=== PATIENT | female | born 1980 | race Two or more races ===

== ENCOUNTER 2017-02-12 09:16 | Inpatient (IN) | payer OTHER ==
[2017-02-12 10:40] VITALS: BMI 29.1
--- NOTE | 2017-02-12 12:08 | HP ---
CIWA Score - CIWA Score Nausea/Vomitin-No Nausea/No Vomiting Muscle Tremors: 4-Moderate,w/Arms Extend Anxiety: 3 Agitation: 4-Moderately Restless Paroxysmal Sweats: 3 Orientation: 0-Oriented Tacttile Disturbances: 0-None Auditory Disturbances: 0-None Visual Disturbances: 0-None Headache: 0-None Present CIWA-Ar Total Score: 14 Admission ROS BHS - HPI Chief Complaint: I am referred to come for detox. I drink everyday. Allergies/Adverse Reactions: Allergies Allergy/AdvReac Type Severity Reaction Status Date / Time No Known Allergies Allergy Verified 02/12/17 10:40 History of Present Illness: pt is a 36yr old female with a history of alcohol dependence seeking detox. Exam Limitations: No Limitations - Ebola screening Have you traveled outside of the country in the last 21 days: No Have you had contact with anyone from an Ebola affected area: No Have you been sick,other than usual withdrawal symptoms: No - Review of Systems Constitutional: Chills, Diaphoresis, Loss of Appetite EENT: reports: No Symptoms Reported Respiratory: reports: No Symptoms reported Cardiac: reports: Syncope GI: reports: Poor Appetite, Poor Fluid Intake : reports: No Symptoms Reported Musculoskeletal: reports: Back Pain, Joint Pain Integumentary: reports: Flushing, Sweating Neuro: reports: Ataxia (pt states she was at her uncle home and was bitten on arms, back, hand by bed bugs.) Endocrine: reports: No Symptoms Reported Hematology: reports: Anemia (thalasemia) Psychiatric: reports: Judgement Intact, Mood/Affect Appropiate, Orientated x3, Agitated, Anxious Other Systems: Reviewed and Negative Patient History - Patient Medical History Hx Anemia: Yes (thalasemia minor) Hx Asthma: Yes (Pt is on MDI) Hx Chronic Obstructive Pulmonary Disease (COPD): No Hx Cardiac Disorders: No Hx Hypertension: Yes (recently dx and did not start meds.) Hx Seizures: No Hx Diabetes: No Hx Gastrointestinal Disorders: No Hx Genitourinary Disorders: No Hx Sexually Transmitted Disorders: No Hx Renal Disease (ESRD): No Hx Thyroid Disease: No Hx Human Immunodeficiency Virus (HIV): No Hx Hepatitis C: No Hx Depression: Yes Hx Suicide Attempt: Yes (Tried to overdose on seroquel in 09/25, denies any S/H ideation today) Hx Bipolar Disorder: No Hx Schizophrenia: No - Patient Surgical History Past Surgical History: No - PPD History Previous Implant?: Yes Documented Results: Negative w/o proof Implanted On Prior R Admission?: No PPD to be Administered?: Yes - Reproductive History Patient is a Female of Child Bearing Age (11 -55 yrs old): Yes Last Menstrual Period: 02/05/17 Patient : No - Smoking Cessation Smoking history: Current every day smoker Have you smoked in the past 12 months: Yes Aproximately how many cigarettes per day: 3 Hx Chewing Tobacco Use: No Initiated information on smoking cessation: Yes 'Breaking Loose' booklet given: 02/12/17 - Substance & Tx. History Hx Alcohol Use: Yes Hx Substance Use: Yes Substance Use Type: Alcohol, Marijuana Hx Substance Use Treatment: No - Substances Abused Alcohol Route: Oral Frequency: Daily Amount used: 12pk beer or 1 pint of vodka/gin/cognac Age of first use: 15 Date of Last Use: 02/11/17 Marijuana/Hashish Route: Smoking Frequency: 1-2 times per week Amount used: 1 blunt Age of first use: 13 Date of Last Use: 02/11/17 Family Disease History - Family Disease History Family History: Denies Family Disease History: Heart Disease: Father, Mother Admission Physical Exam S - Vital Signs Vital Signs: Vital Signs - 24 hr 02/12/17 10:35 Temperature 95.7 F L Pulse Rate 79 Respiratory 18 Rate Blood Pressure 170/111 - Physical General Appearance: Yes: Appropriately Dressed, Moderate Distress, Tremorous, Irritable, Sweating, Anxious HEENTM: Yes: Normal Voice Respiratory: Yes: Lungs Clear, Normal Breath Sounds, No Respiratory Distress Neck: Yes: No masses,lesions,Nodules Breast: Yes: Within Normal Limits Cardiology: Yes: Regular Rhythm, Regular Rate, S1, S2 Abdominal: Yes: Normal Bowel Sounds, Non Tender Genitourinary: Yes: Within Normal Limits Back: Yes: Normal Inspection Musculoskeletal: Yes: Back pain, Muscle Pain Extremities: Yes: Normal Inspection, Non-Tender, Tremors Neurological: Yes: Fully Oriented, Alert, Normal Response Integumentary: Yes: Normal Color, Diaphoresis, Rash Lymphatic: Yes: Within Normal Limits - Diagnostic (1) Alcohol dependence with uncomplicated withdrawal Current Visit: Yes Status: Chronic (2) Cannabis dependence Current Visit: Yes Status: Chronic (3) Nicotine dependence Current Visit: Yes Status: Chronic Qualifiers: Nicotine product type: cigarettes Substance use status: uncomplicated Qualified Code(s): F17.210 - Nicotine dependence, cigarettes, uncomplicated (4) Skin rash Current Visit: Yes Status: Acute Comment: back/hands/arms Cleared for Admission [facility] - Detox or Rehab [facility] Level of Care: Medically Managed Detox Regimen/Protocol: Librium S Breath Alcohol Content Breath Alcohol Content: 0 Urine Pregancy Test - Result Urine Test Results: Negative- NO Line Present Urine Drug Screen - Results Drug Screen Negative: No Urine Drug Screen Results: THC-Marijuana
[2017-02-12] MEDS ORDERED: LOPERAMIDE HCL 2 MG CAPSULE PO PRN (12:33)
[2017-02-12] MEDS ORDERED: MAG HYDROX/AL HYDROX/SIMETH 30 ML UNIT-DOSE CUP PO PRN (12:33)
[2017-02-12] MEDS ORDERED: hydrOXYzine PAMOATE 50 MG CAPSULE (FP) PO PRN (12:33)
[2017-02-12] MEDS ORDERED: P-EPHED 60MG/TRIPROLIDI 2.5MG TABLET PO PRN (12:33)
[2017-02-12] MEDS ORDERED: MAGNESIUM HYDROX 2400MG/30ML ORAL SUSPENSION 30 ML CUP PO PRN (12:33)
[2017-02-12] MEDS ORDERED: diphenhydrAMINE HCL 50 MG CAPSULE PO PRN ×2 (12:33→12:43)
[2017-02-12] MEDS ORDERED: guaiFENesin/D-METHORPHAN HB 10 ML UNIT-DOSE CUPS PO PRN (12:33)
[2017-02-12] MEDS ORDERED: chlordiazePOXIDE HCL 25 MG CAPSULE PO PRN (12:33)
[2017-02-12] MEDS ORDERED: MENTHOL/PHENOL 1 EACH UD MM PRN (12:33)
[2017-02-12] MEDS ORDERED: MAGNESIUM CITRATE 300 ML BOTTLE PO PRN (12:33)
[2017-02-12] MEDS ORDERED: ACETAMINOPHEN 325 MG TABLET (FP) PO PRN (12:33)
[2017-02-12] MEDS ORDERED: IBUPROFEN 400 MG TABLET (FP) PO PRN (12:33)
[2017-02-12] MEDS ORDERED: CYCLOBENZAPRINE HCL 10 MG TABLET (FP) PO PRN (12:43)
[2017-02-12] MEDS ORDERED: chlordiazePOXIDE HCL 25 MG CAPSULE PO ONE (12:43)
[2017-02-12] MEDS: FLUOCINONIDE 0.05% TOP OINT (60 GM TUBE) TP SCH ×3 (14:22→22:20)
[2017-02-12] MEDS ORDERED: cloNIDine HCL 0.1 MG TABLET PO ONE (15:00)
[2017-02-12] MEDS ORDERED: COLLOIDAL OATMEAL 1 BAR EACH TP PRN (15:32)
--- NOTE | 2017-02-12 16:15 | CONSULT ---
[facility] Psychiatric Consult - Data Date of interview: 02/12/17 Admission source: [facility] Identifying data: First admission to [facility] for this 36 y/o AA female seeking detox treatment for alcohol and marijuana dependence.Patient is ,a mother of four,domicled,unemployed and supported on SSI benefits. Substance Abuse History: - Smoking Cessation. Smoking history: Current every day smoker. Have you smoked in the past 12 months: Yes. Aproximately how many cigarettes per day: 3. Hx Chewing Tobacco Use: No. Initiated information on smoking cessation: Yes. 'Breaking Loose' booklet given: 02/12/17. - Substance & Tx. History. Hx Alcohol Use: Yes. Hx Substance Use: Yes. Substance Use Type : Alcohol, Marijuana. Hx Substance Use Treatment: No. - Substances Abused. * * Alcohol. Route: Oral. Frequency: Daily. Amount used: 12pk beer or 1 pint of vodka/gin/cognac. Age of first use: 15. Date of Last Use: 02/11/17. Marijuana/Hashish. Route: Smoking. Frequency: 1-2 times per week. Amount used : 1 blunt. Age of first use: 13. Date of Last Use: 02/11/17. Confirmed by patient. Medical History: Bronchial asthma,hypertension and thalassemia minor.Patient indicates that she is legally blind. Psychiatric History: No reported history of psychiatric hospitalizations.Diagnosed with MDD.Prescribed lexapro 20 mg/day + seroquel 50 mg/am + 100 mg/hs.Ms Mancilla states that she gets OPD care services at the [facility] in the [place].Patient reports a history of multiple suicide attempts by various means (overdosing,cutting,jumping into oncoming traffic). Physical/Sexual Abuse/Trauma History: Patient denies. Additional Comment: Urine Drug Screen Results: THC-Marijuana.Noted. Mental Status Exam - Mental Status Exam Alert and Oriented to: Time, Place, Person Cognitive Function: Good Patient Appearance: Well Groomed Mood: Anxious, Apprehensive, Hopeful Affect: Mood Congruent Patient Behavior: Fatigued, Appropriate, Cooperative Speech Pattern: Clear, Appropriate Voice Loudness: Normal Thought Process: Goal Oriented Thought Disorder: Not Present Hallucinations: Denies Suicidal Ideation: Denies Homicidal Ideation: Denies Insight/Judgement: Poor Sleep: Poorly, Difficulty falling asleep Appetite: Good Muscle strength/Tone: Normal Gait/Station: Normal Psychiatric Findings - Problem List ([place] 1, 2,3) (1) Alcohol dependence with uncomplicated withdrawal Current Visit: Yes Status: Acute (2) Cannabis dependence Current Visit: Yes Status: Acute (3) Nicotine dependence Current Visit: Yes Status: Acute Qualifiers: Nicotine product type: cigarettes Substance use status: uncomplicated Qualified Code(s): F17.210 - Nicotine dependence, cigarettes, uncomplicated (4) Substance induced mood disorder Current Visit: Yes Status: Acute (5) MDD (major depressive disorder) Current Visit: Yes Status: Chronic Comment: Self-report. (6) Insomnia Current Visit: Yes Status: Acute - Initial Treatment Plan Initial Treatment Plan: Psychoeducation.Detoxification.Medications : lexapro 20 mg po daily + seroquel 50 mg po am + 100 mg po hs.Side effects/benefits explained to patient.She is eager to resume these medications.Observation.
[2017-02-12] MEDS: chlordiazePOXIDE HCL 25 MG CAPSULE PO SCH ×2 (17:55→22:19)
[2017-02-12 20:32] LABS: URINE APPEARANCE CLEAR; URINE BILIRUBIN NEGATIVE (NEGATIVE); URINE BLOOD NEGATIVE (NEGATIVE); URINE COLOR YELLOW; URINE GLUCOSE (UA) NEGATIVE (NEGATIVE); URINE KETONE 1+ (NEGATIVE); URINE LEUK ESTERASE NEGATIVE (NEGATIVE); URINE NITRITE NEGATIVE (NEGATIVE); URINE UROBILINOGEN NEGATIVE E.U./dl (0.2-1.0)
[2017-02-12 20:56] LABS: URINE PROTEIN 1+ (NEGATIVE)
[2017-02-12 20:59] LABS: URINE MUCUS RARE; URINE RBC 2 /hpf (0-3); URINE WBC 5 /hpf (3-5)
[2017-02-12] MEDS ORDERED: QUEtiapine FUMARATE 100 MG TABLET (FP) PO SCH (22:00)
[2017-02-12] MEDS ORDERED: THIAMINE HCL 100 MG TABLET (FP) PO SCH (22:00)
[2017-02-13] MEDS: chlordiazePOXIDE HCL 25 MG CAPSULE PO SCH ×2 (05:53→11:08)
--- NOTE | 2017-02-13 08:55 | PN ---
S CIWA - CIWA Score Nausea/Vomitin-No Nausea/No Vomiting Muscle Tremors: 4-Moderate,w/Arms Extend Anxiety: 3 Agitation: 4-Moderately Restless Paroxysmal Sweats: 3 Orientation: 0-Oriented Tacttile Disturbances: 0-None Auditory Disturbances: 0-None Visual Disturbances: 0-None Headache: 1-Very Mild CIWA-Ar Total Score: 15 BHS Progress Note (SOAP) Subjective: agitation anxiety sweats irritable I need a rn iv therapy to talk too. Objective: 02/13/17 08:54 Vital Signs Temperature 98.0 F 02/13/17 06:29 Pulse Rate 69 02/13/17 06:29 Respiratory Rate 20 02/13/17 06:29 Blood Pressure 117/64 02/13/17 06:29 O2 Sat by Pulse Oximetry (%) Laboratory Tests 02/12/17 15:00 Urine Color Yellow Urine Appearance Clear Urine pH 5.0 Ur Specific [place] 1.029 Urine Protein 1+ H Urine Glucose (UA) Negative Urine Ketones 1+ H Urine Blood Negative Urine Nitrite Negative Urine Bilirubin Negative Urine Urobilinogen Negative Ur Leukocyte Esterase Negative Urine RBC 2 Urine WBC 5 Ur Epithelial Cells Moderate Urine Mucus Rare labs pending awake/alert ambulating no acute distress Assessment: 02/13/17 08:54 withdrawal sx Plan: continue detox increase fluids diet changed to low salt low sugar diet dietary consult ordered labs pending
[2017-02-13 09:53] LABS: MCH 27.5 pg (25.7-33.7); MCHC 31.6 g/dl (32.0-36.0); MEAN PLT VOLUME 9.2 fl (7.5-11.1); PLATELET COUNT 269 K/MM3 (134-434); RDW 13.7 % (11.6-15.6); WHITE BLOOD COUNT 5.3 K/mm3 (4.0-10.0)
[2017-02-13] MEDS ORDERED: ESCITALOPRAM OXALATE 20 MG TABLET (FP) PO SCH (10:00)
[2017-02-13] MEDS ORDERED: PRENATAL VITAMINS W/ FOLIC ACID TABLET (FP) PO SCH (10:00)
[2017-02-13] MEDS ORDERED: cloNIDine HCL 0.1 MG TABLET PO SCH (10:00)
[2017-02-13] MEDS ORDERED: QUEtiapine FUMARATE 25 MG TABLET (FP) PO SCH (10:00)
[2017-02-13 10:36] LABS: ALBUMIN 3.4 g/dl (3.4-5.0); ALK PHOS 51 U/L (45-117); ANION GAP 10 (8-16); BILIRUBIN,TOTAL 0.6 mg/dL (0.2-1.0); CO2 25 mmol/L (21-32); CREATININE 0.9 mg/dL (0.55-1.02); GLUCOSE,RANDOM 113 mg/dL (74-106); SGOT/AST 14 U/L (15-37); SGPT/ALT 27 U/L (12-78); TOT PROT 6.5 g/dl (6.4-8.2)
[2017-02-13 10:37] VITALS: BP 150/90; PULSE 86; TEMP 97.2
[2017-02-13 10:44] LABS: HIV 1 & 2 AB NEGATIVE; HIV 1 AGp24 NEGATIVE
[2017-02-13] MEDS: FLUOCINONIDE 0.05% TOP OINT (60 GM TUBE) TP SCH ×2 (11:08→15:51)
--- NOTE | 2017-02-13 13:09 | PN ---
Psychiatric Progress Note Vital Signs: Vital Signs Period Temp Pulse Resp BP Sys/Curiel Pulse Ox Last 24 Hr 97.1 F-98.0 F 68-87 16-20 117-160/64-107 Date of Session: 02/13/17 Chief Complaint:: " I am upset.I want to speak with my outpatient therapist." HPI: Day 3 of detoxification treatment for alcohol and marijuana dependence.Hospital course was unremarkable until the patient started acting out this morning.Reason (s) : unclear.Ms Mancilla became argumentative with staff and she reportedly made threats to harm self and others. ROS: Hypertension is being addressed.Patient is ambulatory.Cognitively intact.No somatic complaint offered. Current Medications: Active Medications Generic Name Dose Route Start Last Admin Trade Name Freq PRN Reason Stop Dose Admin Acetaminophen 650 mg 02/12/17 12:33 Tylenol - PO Q4H PRN FEVER OR PAIN Al Hydroxide/Mg Hydroxide 30 ml 02/12/17 12:33 Mylanta Oral Suspension - PO Q6H PRN DYSPEPSIA Chlordiazepoxide HCl 10 mg 02/15/17 17:00 Librium - PO 02/16/17 11:01 [id number] PARTHA Chlordiazepoxide HCl 25 mg 02/12/17 12:33 02/12/17 19:59 Librium - PO 02/15/17 12:32 25 mg Q4H PRN Administration WITHDRAWAL(CONT SUBST) Chlordiazepoxide HCl 25 mg 02/13/17 17:00 Librium - PO 02/14/17 11:01 [id number] PARTHA Chlordiazepoxide HCl 15 mg 02/14/17 17:00 Librium - PO 02/15/17 11:01 [id number] PARTHA Clonidine 0.1 mg 02/13/17 10:00 02/13/17 11:07 Catapres - PO 0.1 mg BID PARTHA Administration Colloidal Oatmeal 1 applic 02/12/17 15:32 Aveeno Soap - TP DAILY PRN HYGEINE Cyclobenzaprine HCl 10 mg 02/12/17 12:43 02/12/17 22:19 Flexeril - PO 10 mg BID PRN Administration PAIN Diphenhydramine HCl 25 mg 02/12/17 12:43 Benadryl - PO DAILY PRN FOR ITCHING Escitalopram Oxalate 20 mg 02/13/17 10:00 02/13/17 11:07 Lexapro - PO 20 mg DAILY PARTHA Administration Eucalyptus/Menthol/Phenol/Sorbitol 1 each 02/12/17 12:33 Cepastat Lozenge - MM Q4H PRN SORE THROAT Fluocinonide 1 applic 02/12/17 14:00 02/13/17 11:08 Lidex 0.05% Ointment - TP 1 applic QID PARTHA Administration Guaifenesin 10 ml 02/12/17 12:33 Robitussin Dm - PO Q6H PRN COUGH Ibuprofen 400 mg 02/12/17 12:33 Motrin - PO Q6H PRN SEVERE PAIN Loperamide HCl 4 mg 02/12/17 12:33 Imodium - PO Q6H PRN DIARRHEA Magnesium Citrate 300 ml 02/12/17 12:33 Citroma - PO Q48H PRN CONSTIPATION Magnesium Hydroxide 30 ml 02/12/17 12:33 Milk Of Magnesia - PO DAILY PRN CONSTIPATION Multivit/Folic Acid/Iron 1 tab 02/13/17 10:00 02/13/17 11:07 Vitamins (Sjr) - PO 1 tab DAILY PARTHA Administration Pseudoephedrine/Triprolidine 1 combo 02/12/17 12:33 Actifed - PO TID PRN NASAL CONGESTION Quetiapine Fumarate 100 mg 02/12/17 22:00 02/12/17 22:19 Seroquel - PO 100 mg HS PARTHA Administration Quetiapine Fumarate 50 mg 02/13/17 10:00 02/13/17 11:08 Seroquel - PO 50 mg DAILY PARTHA Administration Thiamine HCl 100 mg 02/12/17 22:00 02/12/17 22:19 Vitamin B1 - PO 100 mg HS PARTHA Administration Medication(s) Change(s): Will increase seroquel to 200 mg po hs.Discussed with the patient.She agrees with this plan.Made aware of risk for oversedation/falls, metabolic syndrome.Continue lexapro 20 mg po daily. Current Side Effect: No Lab tests ordered: No Lab tests reviewed: Yes Provider note:: Called to re-evaluate this patient for alleged complaints of suicidal/homicidal ideation.Progress notes reviewed.Case presented by RIDDHI Villarreal.Met with the patient.She is found to be angry,tearful and upset for being " treated like dirt "," talked to like a nobody ".Ms Mancilla states that the situation started yesterday after her request for some cosmetic favors were promised at first by some staff and then denied by others.Patient,apparently, had asked staff for assistance for shortening her braided hair.Tension arose as soon as her request was denied.Then,she got upset over the combined issues of medications and rapport with staff.Ms Mancilla reports feeling offended by " the manners of some people ".She states that the emotional injury brings " rage and the desire to engage in a fight with that staff ".Patient insists that she never felt like hurting herself or other persons.She argues that her anger was triggered by her perception that her needs/complaints are not validated.In an effort to get relief,she asked to reach her OPD therapist by telephone (with the expectation that conversing with an already trusted figure will calmed her down).No evidence of psychosis.Patient is not manic or delusional.She has consistently denied experiencing suicidal or homicidal ideation,intent or plan.She is willing to pursue detox care as initially scheduled.Mental status is stable.Constant observation was initiated earlier as a cautionary measure until further psychiatric evaluation.Patient is currently calm,well controlled and receptive to support,teachings and crisii intervention.No indication for special observation.See MSE report.Discussed with Multidisciplinary team. Total face to face time:: 40 Mental Status Exam - Mental Status Exam Alert and Oriented to: Time, Place, Person Cognitive Function: Good Patient Appearance: Well Groomed (wearing hospital gowns) Mood: Angry, Anxious, Irritable Affect: Labile (tearful during interview) Patient Behavior: Talkative, Appropriate, Cooperative Speech Pattern: Clear (coherent,spontaneous and logical) Voice Loudness: Normal Thought Process: Goal Oriented Thought Disorder: Not Present Hallucinations: Denies Suicidal Ideation: Denies Homicidal Ideation: Denies Insight/Judgement: Fair Sleep: Fair Appetite: Good Muscle strength/Tone: Normal Gait/Station: Normal Psychiatric Treatment Plan - Problem List (1) Alcohol dependence with uncomplicated withdrawal Current Visit: Yes (2) Cannabis dependence Current Visit: Yes (3) Nicotine dependence Current Visit: Yes Qualifiers: Nicotine product type: cigarettes Substance use status: uncomplicated Qualified Code(s): F17.210 - Nicotine dependence, cigarettes, uncomplicated (4) Substance induced mood disorder Current Visit: Yes (5) MDD (major depressive disorder) Current Visit: Yes Comment: Self-report. (6) Insomnia Current Visit: Yes (7) Impulse control disorder, unspecified Current Visit: Yes
--- NOTE | 2017-02-13 16:23 | PN ---
[facility] Progress Note Note: CALLED BY NURSE,STATED PATIENT DID NOT WANT TO COMPLETE TREATMENT,SEEN BY COUNSELOR,DID NOT WANT TO WAIT, SIGNED RELEASED AMA,ADVISE TO SEE HER PMD AND PSYCHIATRIST ,CLEAR BY DR MOON
--- NOTE | 2017-02-13 16:28 | EKG ---
Test Reason : Blood Pressure : / mmHG Vent. Rate : 073 BPM Atrial Rate : 073 BPM P-R Int : 142 ms QRS Dur : 084 ms QT Int : 402 ms P-R-T Axes : 059 016 -03 degrees QTc Int : 442 ms NORMAL SINUS RHYTHM POSSIBLE LEFT ATRIAL ENLARGEMENT BORDERLINE ECG NO PREVIOUS ECGS AVAILABLE Confirmed by JUSTO FOY, JOSIE ([id number]) on 02/13/2017 4:28:39 PM Referred By: Confirmed By:JOSIE KEMP MD
--- NOTE | 2017-02-13 16:29 | DS ---
[facility] Detox Discharge Summary Admission Date: 02/12/17 Discharge Date: 02/13/17 - History Present History: Alcohol Dependence, Cannabis Dependence Additional Comments: PATIENT DID NOT WANT TO COMPLETE TREATMENT,SIGNED RELEASE AMA,DID NOT WANT TO WAIT,SEEN BY COUNSELOR, CLEAR BY DR MOON,ADVISE TO SEE OWN PSYCHIATRIST AND PMD FOR FOLLOW UP Pertinent Past History: ASTHMA H - Physical Exam Results Vital Signs: Vital Signs Temperature 97.2 F L 02/13/17 10:36 Pulse Rate 86 02/13/17 10:36 Respiratory Rate 18 02/13/17 10:36 Blood Pressure 150/90 02/13/17 10:36 O2 Sat by Pulse Oximetry (%) Pertinent Admission Physical Exam Findings: MAJOR DEPRESSIVE DISORDER - Medication Discharge Medications: Ambulatory Orders Cyclobenzaprine HCl [Flexeril 10 mg] 10 mg PO BID PRN 02/12/17 Escitalopram Oxalate [Lexapro -] 20 mg PO DAILY 02/12/17 Escitalopram Oxalate [Lexapro -] 20 mg PO DAILY #30 tablet 02/12/17 Quetiapine Fumarate [Seroquel -] 50 mg PO DAILY 02/12/17 Quetiapine Fumarate [Seroquel -] 100 mg PO HS 02/12/17 Quetiapine Fumarate [Seroquel] 100 mg PO HS #30 tablet 02/12/17 - Diagnosis (1) Alcohol dependence with uncomplicated withdrawal Current Visit: Yes Status: Acute (2) Cannabis dependence Current Visit: Yes Status: Acute (3) Impulse control disorder, unspecified Current Visit: Yes Status: Acute (4) Insomnia Current Visit: Yes Status: Acute (5) Nicotine dependence Current Visit: Yes Status: Acute Qualifiers: Nicotine product type: cigarettes Substance use status: uncomplicated Qualified Code(s): F17.210 - Nicotine dependence, cigarettes, uncomplicated (6) MDD (major depressive disorder) Current Visit: Yes Status: Chronic - AMA Did Patient Leave Against Medical Advice: Yes
[2017-02-13] MEDS ORDERED: chlordiazePOXIDE HCL 25 MG CAPSULE PO SCH (17:00)
--- NOTE | 2017-02-13 17:50 | PN ---
[facility] Progress Note Note: Psychiatry Attending's note (addendum) : Patient requested telephone contact with her therapist at [facility]. [employer] Administrator allowed patient to sit in office.Call is facilitated.Witnessed by Dr Umanzor. Duration of contact : 15-20 minutes. . Content : Patient stated that she was dissatisfied with care at [address] [place] [address]. Blamed staff for " being rude,nasty and indifferent." Berated this program.Complained that her needs are not met. " I need a drink.I cannot stay here.Am craving for alcohol." Ms Mancilla is encouraged to stay in treatment.Not receptive. Informed that her complaints/concerns are validated/addressed. Response : " I cannot deal with these female staff.I got to leave." Patient is NOT psychotic,manic or delusional.She is cognitively intact. Fully capable of decision-making on matters pertinent to her welfare. Has consistenly DENIED suicidal/homicidal ideation,intent or plan. She DOES NOT meet criteria for transfer to a psychiatric institution. Clearly presenting with traits of a personality construct (borderline). Invested in the quest for immediate gratification.Indifferent to care. STABLE mental status.
[2017-02-14] MEDS ORDERED: chlordiazePOXIDE 5 MG CAPSULE PO SCH (17:00)
[2017-02-15] MEDS ORDERED: chlordiazePOXIDE HCL 10 MG CAPSULE PO SCH (17:00)
== END 2017-02-13 16:37 | disposition left against medical advice (07) | DRG 770 ==
LOC: YASAS 09:16 → Y6N 11:20
PROVIDERS: ADMIT Internal Medicine Addiction Medicine; ATTEND Internal Medicine Addiction Medicine
PROC: HZ2ZZZZ Detoxification Services for Substance Abuse Treatment (ICD-10-PCS; principal; 2017-02-13)
DX: F10.230 Alcohol dependence with withdrawal, uncomplicated (principal); F12.20 Cannabis dependence, uncomplicated; F17.210 Nicotine dependence, cigarettes, uncomplicated; F19.24 Other psychoactive substance dependence with psychoactive substance-induced mood disorder; F33.9 Major depressive disorder, recurrent, unspecified; F63.89 Other impulse disorders; G47.00 Insomnia, unspecified; R21 Rash and other nonspecific skin eruption
CPT/HCPCS: 36415; 80053; 81003; 81015; 85027; 86593; 87389; 93005; 93010

== ENCOUNTER 2018-11-05 13:34 | Inpatient (IN) | payer OTHER ==
[2018-11-05 13:41] VITALS: BMI 25.7
--- NOTE | 2018-11-05 15:00 | HP ---
CIWA Score Nausea/Vomitin Muscle Tremors: 2 Anxiety: 2 Agitation: 2 Paroxysmal Sweats: 1-Minimal Palms Moist Orientation: 0-Oriented Tacttile Disturbances: 1-Very Mild Itch/Numbness Auditory Disturbances: 1-Very Mild Visual Disturbances: 0-None Headache: 2-Mild CIWA-Ar Total Score: 13 - Admission Criteria OASAS Guidelines: Admission for Medically Managed Detox: Requires at least one of the followin. CIWA greater than 12 2. Seizures within the past 24 hours 3. Delirium tremens within the past 24 hours 4. Hallucinations within the past 24 hours 5. Acute intervention needed for co occurring medical disorder 6. Acute intervention needed for co occurring psychiatric disorder 7. Severe withdrawal that cannot be handled at a lower level of care (continued vomiting, continued diarrhea, abnormal vital signs) requiring intravenous medication and/or fluids 8. Patient presents the following: CIWA greater than 12 Admission Criteria Met: Admission criteria met Admission ROS S - HPI Chief Complaint: i need help to stop drinking alcohol,marijuana Allergies/Adverse Reactions: Allergies Allergy/AdvReac Type Severity Reaction Status Date / Time No Known Allergies Allergy Verified 11/05/18 14:27 History of Present Illness: this 38 years old female with alcohol and mariuana dependence,seeking detox, withdrawal symptom,[facility] asthma nicotine dependence hypertension no med no sobriety bipolar disorder,depression and borderline personality disorder,non compliance Exam Limitations: No Limitations - Ebola screening Have you traveled outside of the country in the last 21 days: No Have you had contact with anyone from an Ebola affected area: No Have you been sick,other than usual withdrawal symptoms: No Do you have a fever: No - Review of Systems Constitutional: Loss of Appetite, Malaise, Night Sweats, Changes in sleep, Weakness EENT: reports: Nose Congestion Respiratory: reports: No Symptoms reported (asthma), Other Cardiac: reports: Palpitations GI: reports: Nausea, Poor Appetite, Abdominal cramping : reports: No Symptoms Reported Musculoskeletal: reports: Back Pain, Muscle Pain Integumentary: reports: Dryness Neuro: reports: Headache, Tremors Endocrine: reports: No Symptoms Reported Hematology: reports: No Symptoms Reported Psychiatric: reports: No Sypmtoms Reported, Judgement Intact, Orientated x3, Depressed (bipolar disorder,borderline personality), other Patient History - Patient Medical History Hx Anemia: Yes (thalasemia minor) Hx Asthma: Yes (on albuterol inhaler) Hx Chronic Obstructive Pulmonary Disease (COPD): No Hx Cancer: No Hx Cardiac Disorders: No Hx Congestive Heart Failure: No Hx Hypertension: Yes (no med) Hx Hypercholesterolemia: No Hx Pacemaker: No HX Cerebrovascular Accident: No Hx Seizures: No Hx Dementia: No Hx Diabetes: No Hx Gastrointestinal Disorders: No Hx Liver Disease: No Hx Genitourinary Disorders: No Hx Sexually Transmitted Disorders: No Hx Renal Disease (ESRD): No Hx Thyroid Disease: No Hx Human Immunodeficiency Virus (HIV): No (last 08/27 negative) Hx Hepatitis C: No Hx Depression: Yes Hx Suicide Attempt: Yes (pill overdose in 08/2018) Hx Bipolar Disorder: No Hx Schizophrenia: No Other Medical History: no suicidal,no homicidal,thalassemia minor - Patient Surgical History Past Surgical History: No Hx Neurologic Surgery: No Hx Cataract Extraction: No Hx Cardiac Surgery: No Hx Lung Surgery: No Hx Breast Surgery: No Hx Breast Biopsy: No Hx Abdominal Surgery: No Hx Appendectomy: No Hx Cholecystectomy: No Hx Genitourinary Surgery: No Hx Section: No Hx Orthopedic Surgery: No Anesthesia Reaction: No - PPD History Previous Implant?: Yes Documented Results: Negative w/o proof Implanted On Prior R Admission?: Yes Date: 02/14/17 Results: no reading PPD to be Administered?: Yes - Reproductive History Patient is a Female of Child Bearing Age (11 -55 yrs old): Yes Last Menstrual Period: 11/01/18 Patient : No - Smoking Cessation Smoking history: Current every day smoker Have you smoked in the past 12 months: Yes Aproximately how many cigarettes per day: 2 Hx Chewing Tobacco Use: No Initiated information on smoking cessation: Yes 'Breaking Loose' booklet given: 11/05/18 - Substance & Tx. History Hx Alcohol Use: Yes Hx Substance Use: Yes Substance Use Type: Alcohol, Marijuana Hx Substance Use Treatment: Yes ([facility] 2016) - Substances Abused Alcohol-cognac/vodka/gin Route: Oral Frequency: Daily Amount used: 1/2 gal. Age of first use: 16 Date of Last Use: 11/04/18 Marijuana Route: Smoking Frequency: 3-6 times per week Amount used: $5 Age of first use: 16 Date of Last Use: 11/02/18 Family Disease History - Family Disease History Family Disease History: Heart Disease: Father, Mother Admission Physical Exam [facility] - Vital Signs Vital Signs: Vital Signs - 24 hr 11/05/18 13:36 Temperature 95.8 F L Pulse Rate 90 Respiratory 18 Rate Blood Pressure 176/100 H - Physical General Appearance: Yes: Moderate Distress, Tremorous, Irritable, Sweating, Anxious HEENTM: Yes: Normal ENT Inspection, CHANEL, Pharynx Normal Respiratory: Yes: Lungs Clear, Normal Breath Sounds, No Respiratory Distress Neck: Yes: Within Normal Limits, Supple, Trachea in good position Breast: Yes: Breast Exam Deferred Cardiology: Yes: Within Normal Limits, Regular Rhythm, Regular Rate, S1, S2 Abdominal: Yes: Within Normal Limits, Normal Bowel Sounds, Non Tender, Flat, Soft Genitourinary: Yes: Within Normal Limits Back: Yes: Muscle Spasm Musculoskeletal: Yes: Back pain, Muscle Pain Extremities: Yes: Tremors Neurological: Yes: clamshell operator II-XII NML intact, Fully Oriented, Alert, Motor Strength 5/5 Integumentary: Yes: Dry Lymphatic: Yes: Within Normal Limits - Diagnostic (1) Alcohol dependence with uncomplicated withdrawal Current Visit: No Status: Acute (2) Cannabis dependence Current Visit: No Status: Acute (3) Nicotine dependence Current Visit: No Status: Acute Qualifiers: Nicotine product type: cigarettes Substance use status: uncomplicated Qualified Code(s): F17.210 - Nicotine dependence, cigarettes, uncomplicated (4) Bipolar disorder Current Visit: Yes Status: Acute (5) Depression Current Visit: Yes Status: Acute (6) Borderline personality disorder Current Visit: Yes Status: Acute (7) Thalassemia minor Current Visit: Yes Status: Acute (8) Syncope Current Visit: Yes Status: Acute Cleared for Admission [facility] - Detox or Rehab [facility] Level of Care: Medically Managed Detox Regimen/Protocol: Librium [facility] Breath Alcohol Content Breath Alcohol Content: 0 Urine Pregancy Test - Result Urine Test Results: Negative- NO Line Present Urine Drug Screen - Results Drug Screen Negative: No Urine Drug Screen Results: THC-Marijuana
[2018-11-05] MEDS ORDERED: P-EPHED 60MG/TRIPROLIDI 2.5MG TABLET PO PRN (15:12)
[2018-11-05] MEDS ORDERED: MENTHOL/PHENOL 1 EACH UD MM PRN (15:12)
[2018-11-05] MEDS ORDERED: MAGNESIUM CITRATE 300 ML BOTTLE PO PRN (15:12)
[2018-11-05] MEDS ORDERED: MAG HYDROX/AL HYDROX/SIMETH 30 ML UNIT-DOSE CUP PO PRN (15:12)
[2018-11-05] MEDS ORDERED: chlordiazePOXIDE HCL 25 MG CAPSULE PO PRN (15:12)
[2018-11-05] MEDS ORDERED: MAGNESIUM HYDROX 2400MG/30ML ORAL SUSPENSION 30 ML CUP PO PRN (15:12)
[2018-11-05] MEDS ORDERED: guaiFENesin/D-METHORPHAN HB 10 ML UNIT-DOSE CUPS PO PRN (15:12)
[2018-11-05] MEDS ORDERED: LOPERAMIDE HCL 2 MG CAPSULE PO PRN (15:12)
[2018-11-05] MEDS ORDERED: ACETAMINOPHEN 325 MG TABLET (FP) PO PRN (15:12)
[2018-11-05] MEDS ORDERED: ALBUTEROL SO4 8 GM HFA INHALER IH PRN (15:15)
[2018-11-05] MEDS ORDERED: cloNIDine HCL 0.1 MG TABLET PO ONE ×2 (16:23→16:45)
[2018-11-05] MEDS: chlordiazePOXIDE HCL 25 MG CAPSULE PO SCH ×2 (16:30→22:28)
[2018-11-05] MEDS ORDERED: MELATONIN 5 MG TABLETS PO PRN (22:00)
--- NOTE | 2018-11-05 22:27 | PN ---
[facility] Progress Note Note: Patient was seen and examined in bed. As per patient, the tissue paper dispenser fell on her right hand. Moderate swelling noted. No bruises or abrasion noted. Vital Signs Temperature 96.9 F L 11/05/18 22:32 Pulse Rate 75 11/05/18 22:32 Respiratory Rate 18 11/05/18 22:32 Blood Pressure 137/92 11/05/18 22:32 O2 Sat by Pulse Oximetry (%) Action:Tylenol 325mg 2 tablets oral Q6H as needed Apply Cold compress to affected area
[2018-11-05] MEDS: THIAMINE HCL 100 MG TABLET (FP) PO SCH (22:29)
[2018-11-06] MEDS: chlordiazePOXIDE HCL 25 MG CAPSULE PO SCH ×4 (05:54→22:28)
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
[2018-11-06 10:47] LABS: HEMATOCRIT 43.6 % (32.4-45.2); HEMOGLOBIN 13.9 GM/dL (10.7-15.3); MCH 28.1 pg (25.7-33.7); MCHC 31.8 g/dl (32.0-36.0); MEAN CELL VOLUME 88.4 fl (80-96); MEAN PLT VOLUME 10.1 fl (7.5-11.1); PLATELET COUNT 282 K/MM3 (134-434); RBC 4.94 M/mm3 (3.60-5.2); RDW 14.1 % (11.6-15.6); WHITE BLOOD COUNT 6.9 K/mm3 (4.0-10.0)
[2018-11-06] MEDS: PRENATAL VITAMINS W/ FOLIC ACID TABLET (FP) PO SCH (10:50)
[2018-11-06] MEDS: ESCITALOPRAM OXALATE 20 MG TABLET (FP) PO SCH (10:52)
[2018-11-06 10:54] LABS: ALBUMIN 4.4 g/dl (3.4-5.0); ALK PHOS 65 U/L (45-117); ANION GAP 7 MMOL/L (8-16); BILIRUBIN,TOTAL 1.9 mg/dL (0.2-1); BLOOD UREA NITROGEN 12 mg/dL (7-18); CALCIUM 9.7 mg/dL (8.5-10.1); CHLORIDE 102 mmol/L (98-107); CO2 29 mmol/L (21-32); CREATININE 0.9 mg/dL (0.55-1.3); GLUCOSE,RANDOM 107 mg/dL (74-106); POTASSIUM 3.9 mmol/L (3.5-5.1); SGOT/AST 27 U/L (15-37); SGPT/ALT 21 U/L (13-61); SODIUM 138 mmol/L (136-145); TOT PROT 8.1 g/dl (6.4-8.2)
--- NOTE | 2018-11-06 14:36 | PN ---
S CIWA - CIWA Score Nausea/Vomitin-No Nausea/No Vomiting Muscle Tremors: None Anxiety: 4-Mod. Anxious/Guarded Agitation: 5 Paroxysmal Sweats: No Perspiration Orientation: 0-Oriented Tacttile Disturbances: 0-None Auditory Disturbances: 0-None Visual Disturbances: 0-None Headache: 0-None Present CIWA-Ar Total Score: 9 [facility] Progress Note (SOAP) Subjective: PATIENT C/O ANXIETY, RESTLESSNESS AND SLEEP DISTURBANCE DURING MORNING ROUNDS. Objective: 11/06/18 14:34 Vital Signs Temperature 96.7 F L 11/06/18 09:30 Pulse Rate 106 H 11/06/18 09:30 Respiratory Rate 19 11/06/18 09:30 Blood Pressure 157/106 H 11/06/18 09:30 O2 Sat by Pulse Oximetry (%) Laboratory Tests 11/06/18 11/06/18 11/06/18 05:50 05:50 05:50 WBC 6.9 RBC 4.94 Hgb 13.9 Hct 43.6 MCV 88.4 MCH 28.1 MCHC 31.8 L RDW 14.1 Plt Count 282 MPV 10.1 Sodium 138 Potassium 3.9 Chloride 102 Carbon Dioxide 29 Anion Gap 7 L BUN 12 Creatinine 0.9 Creat Clearance w eGFR > 60 Random Glucose 107 H Calcium 9.7 Total Bilirubin 1.9 H AST 27 ALT 21 Alkaline Phosphatase 65 Total Protein 8.1 Albumin 4.4 RPR Titer Nonreactive PE: ALERT AND ORIENTED X 3 SKIN WARM AND DRY EXT FULL ROM, AMB AD VERONICA PATIENT ANXIOUS AND TEARFUL Assessment: 11/06/18 14:35 WITHDRAWAL SX Plan: CONTINUE DETOX ENCOURAGE ORAL FLUIDS CONTINUE TO MONITOR
--- NOTE | 2018-11-06 14:38 | PN ---
[facility] Progress Note Note: PER RN, PATIENT BECAME AGITATED AND VERBALLY AGRESSIVE THIS AFTERNOON. WAS SEEN BY PSYCH THIS MORNING AND MEDICATIONS ORDERED. PATIENT REDIRECTED AND INTERDISCIPLINARY MEETING DONE WITH PATIENT. UNIT PROTOCOL AND BEHAVIOUR EXPECTATIONS REVIEWED WITH PATIENT. PATIENT AGREED TO COMPLY WITH UNIT RULES. CONTINUE TO MONITOR.
[2018-11-06] MEDS ORDERED: cloNIDine HCL 0.1 MG TABLET PO ONE (15:35)
--- NOTE | 2018-11-06 15:37 | PN ---
S Progress Note Note: Vital Signs Temperature 96.4 F L 11/06/18 15:07 Pulse Rate 92 H 11/06/18 15:07 Respiratory Rate 19 11/06/18 15:07 Blood Pressure 148/105 H 11/06/18 15:07 O2 Sat by Pulse Oximetry (%) ELEVATED BP TREATED WITH CLONIDINE 0.1MG ONCE. PATIENT REMAINS ALERT AND ORIENTED X 3, AMBULATING ON UNIT. IN NAD. NO C/O CHEST PAIN, SOB AND/OR DIZZINESS MADE.
--- NOTE | 2018-11-06 15:45 | PN ---
[facility] Progress Note Note: Psychiatry Attending's note (delayed) : [employer] Crew Chief was approached, around 10:30 AM, by this patient. Ms Mancilla came spontaneously to the office with numerous complaints. " I need my room changed. My roommate is sloppy and I cannot stay in that room. I have OCD and I cannot tolerate dirty places. The dayroom needs to be cleaned too. Nobody is paying attention to my needs. Why don't they put me in a single room ? . Otherwise, I will sign out and go to [facility] where they have single rooms. I will cause trouble if I don't get what I want. I don't get along with some staff here ". Patient was observed as demanding, intrusive, perseverative, argumentative, manipulative and hostile. Hypertalkative and oblivious to verbal redirections. Chart reviewed. dish room worker Hanna's consult note (11/06/18) : read + appreciated. Patient is already known to check writer from past admission to [address] [place] [address]. See records of 02/12 + 02/13/17 for details. Disposition conference conducted with the Multidisciplinary treatment team ( with the patient in attendance). Presents : nurse Ken Huntley + counselor Zara Pratt + DAX Davey + attending psychiatrist, Dr Umanzor. Patient was given forum to expose her complaints. They were validated. Processed and feedback provided to the patient. Reassurance and support given. However, limits were also set (patient reminded about rules + regulations + limitations of service). Made aware of the disruptive effect of her behavior upon the communal, therapeutic milieu. Patient is reminded of the rights of others. Patient's performance at the meeting : noted as labile, controlling, repetitive , emotionally incontinent at intervals, hypervigilant and infantile. Clearly histrionic (personal needs/whims to be given priority), theatrical, easily provoked, somewhat disorganized and irrelevant at times. No evidence of psychosis or acute amadeo. Character disorder is suspected ( borderline/histrionic) in addition to existing mood dysregulation. Interventions : Seroquel is raised to 100 mg po hs. Titration will follow if clinically indicated. No room change : bed not available on the unit. Utilization of other bathrooms : granted to patient. Upgraded housekeeping services made available. Support and reassurance. Close observation. Duration of intervention : more than 2 hours (all disciplines combined). Will follow course.
[2018-11-06] MEDS: hydrOXYzine PAMOATE 50 MG CAPSULE (FP) PO PRN (15:49)
[2018-11-06] MEDS ORDERED: QUEtiapine FUMARATE 50 MG TABLET PO SCH (22:00)
[2018-11-06] MEDS: QUEtiapine FUMARATE 100 MG TABLET (FP) PO SCH (22:28)
[2018-11-06] MEDS: THIAMINE HCL 100 MG TABLET (FP) PO SCH (22:28)
[2018-11-07] MEDS: chlordiazePOXIDE HCL 25 MG CAPSULE PO SCH ×2 (05:28→10:35)
[2018-11-07] MEDS: hydrOXYzine PAMOATE 50 MG CAPSULE (FP) PO PRN ×2 (09:00→13:54)
[2018-11-07] MEDS: PRENATAL VITAMINS W/ FOLIC ACID TABLET (FP) PO SCH (10:35)
[2018-11-07] MEDS: ESCITALOPRAM OXALATE 20 MG TABLET (FP) PO SCH (10:35)
[2018-11-07] MEDS ORDERED: COLLOIDAL OATMEAL 1 BAR EACH TP PRN (12:11)
--- NOTE | 2018-11-07 15:21 | PN ---
[facility] CIWA - CIWA Score Nausea/Vomitin-No Nausea/No Vomiting Muscle Tremors: None Anxiety: 4-Mod. Anxious/Guarded Agitation: 4-Moderately Restless Paroxysmal Sweats: No Perspiration Orientation: 0-Oriented Tacttile Disturbances: 2-Mild Itch/Numbness/Burn Auditory Disturbances: 0-None Visual Disturbances: 2-Mild Sensitivity Headache: 0-None Present CIWA-Ar Total Score: 12 [facility] Progress Note (SOAP) Subjective: Anxious, Interrupted Sleep. Objective: PATIENT A & O X 3, OBSERVED AMBULATING ON UNIT. IN NO ACUTE DISTRESS. PATIENT DENIES CHEST PAIN. 11/07/18 15:22 Vital Signs Temperature 96.1 F L 11/07/18 15:11 Pulse Rate 99 H 11/07/18 15:11 Respiratory Rate 18 11/07/18 15:11 Blood Pressure 158/107 H 11/07/18 15:11 O2 Sat by Pulse Oximetry (%) Laboratory Tests 11/06/18 11/06/18 11/06/18 05:50 05:50 05:50 WBC 6.9 RBC 4.94 Hgb 13.9 Hct 43.6 MCV 88.4 MCH 28.1 MCHC 31.8 L RDW 14.1 Plt Count 282 MPV 10.1 Sodium 138 Potassium 3.9 Chloride 102 Carbon Dioxide 29 Anion Gap 7 L BUN 12 Creatinine 0.9 Creat Clearance w eGFR > 60 Random Glucose 107 H Calcium 9.7 Total Bilirubin 1.9 H AST 27 ALT 21 Alkaline Phosphatase 65 Total Protein 8.1 Albumin 4.4 RPR Titer Nonreactive LABS NOTED. 11/07/18 15:22 Assessment: 11/07/18 15:22 WITHDRAWAL SYMPTOMS. ELEVATED BP. Plan: CONTINUE DETOX., CLONIDINE, 0.1 MG PO X 1 ORDERED. CONTINUE TO MONITOR BP.
[2018-11-07] MEDS ORDERED: cloNIDine HCL 0.1 MG TABLET PO ONE (15:23)
[2018-11-07] MEDS: chlordiazePOXIDE 5 MG CAPSULE PO SCH ×2 (17:27→22:20)
[2018-11-07] MEDS ORDERED: AMMONIUM LACTATE 12% LOTION 225 GM BOTTLE TP SCH (22:00)
[2018-11-07] MEDS: QUEtiapine FUMARATE 100 MG TABLET (FP) PO SCH (22:20)
[2018-11-07] MEDS: THIAMINE HCL 100 MG TABLET (FP) PO SCH (22:20)
[2018-11-08] MEDS: chlordiazePOXIDE 5 MG CAPSULE PO SCH (06:00)
[2018-11-08 06:46] VITALS: BP 118/71; PULSE 65; TEMP 97.2
[2018-11-08] MEDS ORDERED: chlordiazePOXIDE HCL 10 MG CAPSULE PO SCH ×2 (11:00→17:00)
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
== END 2018-11-08 09:53 | disposition home or self-care (01) | DRG 775 ==
LOC: YASAS 13:34 → Y3N 15:16
PROC: HZ2ZZZZ Detoxification Services for Substance Abuse Treatment (ICD-10-PCS; principal; 2018-11-05)
DX: F10.230 Alcohol dependence with withdrawal, uncomplicated (principal); F12.20 Cannabis dependence, uncomplicated; F17.210 Nicotine dependence, cigarettes, uncomplicated; F31.9 Bipolar disorder, unspecified; F33.9 Major depressive disorder, recurrent, unspecified; F19.24 Other psychoactive substance dependence with psychoactive substance-induced mood disorder; F60.3 Borderline personality disorder; F43.10 Post-traumatic stress disorder, unspecified; R55 Syncope and collapse; D56.3 Thalassemia minor; J45.909 Unspecified asthma, uncomplicated; I10 Essential (primary) hypertension; H54.8 Legal blindness, as defined in USA; Z91.5 Personal history of self-harm
CPT/HCPCS: 36415; 80053; 85027; 86593; J0735

== ENCOUNTER 2022-01-05 10:13 | Inpatient (IN) | payer OTHER ==
[2022-01-05 10:38] VITALS: BMI 26.1
[2022-01-05] MEDS ORDERED: NICOTINE 10 MG CARTRIDGE (INHALER) IH PRN (11:38)
[2022-01-05] MEDS ORDERED: LOPERAMIDE HCL 2 MG CAPSULE PO PRN (11:38)
[2022-01-05] MEDS ORDERED: MAG HYDROX/AL HYDROX/SIMETH 30 ML UNIT-DOSE CUP PO PRN (11:38)
[2022-01-05] MEDS ORDERED: MAGNESIUM CITRATE 300 ML BOTTLE PO PRN (11:38)
[2022-01-05] MEDS ORDERED: NICOTINE POLACRILEX 2 MG GUM BUC PRN (11:38)
[2022-01-05] MEDS ORDERED: MAGNESIUM HYDROX 2400MG/30ML ORAL SUSPENSION 30 ML CUP PO PRN (11:38)
[2022-01-05] MEDS ORDERED: BISMUTH SUBSALICYLATE 524 MG/30 ML PO PRN (11:38)
[2022-01-05] MEDS ORDERED: METHOCARBAMOL 500 MG TABLET PO PRN (11:38)
[2022-01-05] MEDS ORDERED: IBUPROFEN 400 MG TABLET (FP) PO PRN (11:38)
[2022-01-05] MEDS ORDERED: ONDANSETRON *ODT* 4 MG TABLET SL PRN (11:38)
[2022-01-05] MEDS ORDERED: MENTHOL/PHENOL 1 EACH UD MM PRN (11:38)
[2022-01-05] MEDS ORDERED: ACETAMINOPHEN 325 MG TABLET (FP) PO PRN ×2 (11:38)
[2022-01-05] MEDS ORDERED: chlordiazePOXIDE HCL 25 MG CAPSULE PO PRN (11:38)
[2022-01-05] MEDS: hydrOXYzine PAMOATE 25 MG CAPSULE (FP) PO SCH ×3 (13:18→22:24)
[2022-01-05] MEDS ORDERED: ALBUTEROL SO4 HFA INHALER IH PRN (14:26)
[2022-01-05] MEDS: chlordiazePOXIDE HCL 25 MG CAPSULE PO SCH ×2 (17:33→22:24)
[2022-01-05] MEDS: THIAMINE HCL 100 MG TABLET (FP) PO SCH (22:24)
[2022-01-05] MEDS: MELATONIN 5 MG TABLETS PO SCH (22:24)
[2022-01-06] MEDS: hydrOXYzine PAMOATE 25 MG CAPSULE (FP) PO SCH ×5 (06:45→22:16)
[2022-01-06] MEDS: chlordiazePOXIDE HCL 25 MG CAPSULE PO SCH ×4 (06:46→22:17)
[2022-01-06] MEDS: PRENATAL VITAMINS W/ FOLIC ACID TABLET (FP) PO SCH (10:23)
[2022-01-06] MEDS: ESCITALOPRAM OXALATE 10 MG TABLET PO SCH (10:23)
[2022-01-06] MEDS: NICOTINE 7 MG/24 HOURS TOPICAL PATCH TD SCH (10:23)
[2022-01-06 12:48] LABS: HEMATOCRIT 36.7 % (32.4-45.2); HEMOGLOBIN 12.1 GM/dL (10.7-15.3); MCH 29.4 pg (25.7-33.7); MEAN CELL VOLUME 89.2 fl (80-96); MEAN PLT VOLUME 9.7 fl (7.5-11.1); PLATELET COUNT 257 10^3/uL (134-434); RBC 4.11 M/mm3 (3.60-5.2); RDW 14.6 % (11.6-15.6)
[2022-01-06 13:18] LABS: ALBUMIN 3.3 g/dl (3.4-5.0); BILIRUBIN,TOTAL 1.4 mg/dL (0.2-1); BLOOD UREA NITROGEN 7.4 mg/dL (7-18); CALCIUM 8.6 mg/dL (8.5-10.1); CREATININE 0.8 mg/dL (0.55-1.3); TOT PROT 6.7 g/dl (6.4-8.2)
[2022-01-06] MEDS ORDERED: cloNIDine HCL 0.1 MG TABLET PO PRN (16:59)
[2022-01-06] MEDS: THIAMINE HCL 100 MG TABLET (FP) PO SCH (22:16)
[2022-01-06] MEDS: QUEtiapine FUMARATE 50 MG TABLET PO SCH (22:16)
[2022-01-06] MEDS: MELATONIN 5 MG TABLETS PO SCH (22:16)
[2022-01-07] MEDS: chlordiazePOXIDE HCL 25 MG CAPSULE PO SCH ×4 (06:20→22:25)
[2022-01-07] MEDS: hydrOXYzine PAMOATE 25 MG CAPSULE (FP) PO SCH ×5 (06:21→22:24)
[2022-01-07] MEDS: PRENATAL VITAMINS W/ FOLIC ACID TABLET (FP) PO SCH (10:19)
[2022-01-07] MEDS: ESCITALOPRAM OXALATE 10 MG TABLET PO SCH (10:20)
[2022-01-07] MEDS: NICOTINE 7 MG/24 HOURS TOPICAL PATCH TD SCH (10:22)
[2022-01-07 10:48] LABS: BILIRUBIN,TOTAL 1.2 mg/dL (0.2-1)
[2022-01-07 16:07] LABS: SARS-CoV-2 NAA Not Detected (Not Detected)
[2022-01-07 16:57] LABS: SYPHILIS W/ RPR CONF NON-REACTIVE (NONREACTIVE)
[2022-01-07 17:26] LABS: HIV INTERPRETATION NEGATIVE (NEGATIVE)
[2022-01-07] MEDS: MELATONIN 5 MG TABLETS PO SCH (22:24)
[2022-01-07] MEDS: QUEtiapine FUMARATE 50 MG TABLET PO SCH (22:24)
[2022-01-07] MEDS: THIAMINE HCL 100 MG TABLET (FP) PO SCH (22:24)
[2022-01-08] MEDS ORDERED: chlordiazePOXIDE HCL 10 MG CAPSULE PO PRN
[2022-01-08] MEDS ORDERED: chlordiazePOXIDE HCL 10 MG CAPSULE PO SCH (05:00)
[2022-01-08] MEDS: hydrOXYzine PAMOATE 25 MG CAPSULE (FP) PO SCH (05:50)
[2022-01-08 08:47] VITALS: BP 148/85; PULSE 82; TEMP 97.2
[2022-01-09] MEDS ORDERED: chlordiazePOXIDE HCL 10 MG CAPSULE PO SCH (05:00)
[2022-01-10] MEDS ORDERED: chlordiazePOXIDE HCL 10 MG CAPSULE PO ONE (05:00)
== END 2022-01-08 09:15 | disposition left against medical advice (07) | DRG 770 ==
LOC: YASAS 10:13 → Y3N 12:12
PROVIDERS: ADMIT Allergy & Immunology; ATTEND Allergy & Immunology
PROC: HZ2ZZZZ Detoxification Services for Substance Abuse Treatment (ICD-10-PCS; principal; 2022-01-05)
DX: F10.230 Alcohol dependence with withdrawal, uncomplicated (principal); F12.20 Cannabis dependence, uncomplicated; F17.210 Nicotine dependence, cigarettes, uncomplicated; F31.9 Bipolar disorder, unspecified; F32.A Depression, unspecified; F43.10 Post-traumatic stress disorder, unspecified; F60.3 Borderline personality disorder; D56.3 Thalassemia minor; E88.09 Other disorders of plasma-protein metabolism, not elsewhere classified; I10 Essential (primary) hypertension; H54.62 Unqualified visual loss, left eye, normal vision right eye; R73.03 Prediabetes; Z62.810 Personal history of physical and sexual abuse in childhood; Z91.410 Personal history of adult physical and sexual abuse
CPT/HCPCS: 36415; 80053; 81025; 82247; 82947; 83036; 85027; 86780; 87389; 87811; C9803; J0735; Q0162; U0003; U0005

== ENCOUNTER 2022-11-11 13:46 | Inpatient (IN) | payer OTHER ==
[2022-11-11 14:16] VITALS: BMI 24.2
[2022-11-11] MEDS ORDERED: ONDANSETRON *ODT* 4 MG TABLET SL PRN (16:13)
[2022-11-11] MEDS ORDERED: MAGNESIUM HYDROX 2400MG/30ML ORAL SUSPENSION 30 ML CUP PO PRN (16:13)
[2022-11-11] MEDS ORDERED: MAG HYDROX/AL HYDROX/SIMETH 30 ML UNIT-DOSE CUP PO PRN (16:13)
[2022-11-11] MEDS ORDERED: NICOTINE 10 MG CARTRIDGE (INHALER) IH PRN (16:13)
[2022-11-11] MEDS ORDERED: IBUPROFEN 600 MG TABLET (FP) PO PRN (16:13)
[2022-11-11] MEDS ORDERED: POLYETHYLENE GLYCOL (HEALTHYLAX) 3350 17 GM PACKET PO PRN (16:13)
[2022-11-11] MEDS ORDERED: IBUPROFEN 400 MG TABLET (FP) PO PRN (16:13)
[2022-11-11] MEDS ORDERED: NALOXONE HCL (KLOXXADO) 8 MG SPRAY NS PRN (16:13)
[2022-11-11] MEDS ORDERED: ACETAMINOPHEN 325 MG TABLET (FP) PO PRN ×2 (16:13)
[2022-11-11] MEDS ORDERED: DICYCLOMINE HCL 10 MG CAPSULE PO PRN (16:13)
[2022-11-11] MEDS ORDERED: LOPERAMIDE HCL 2 MG CAPSULE PO PRN (16:13)
[2022-11-11] MEDS ORDERED: BENZOCAINE/MENTHOL (CHLORASEPTIC ) LOZENGE MM PRN (16:13)
[2022-11-11] MEDS ORDERED: NICOTINE POLACRILEX 2 MG GUM BUC PRN (16:13)
[2022-11-11] MEDS ORDERED: BISMUTH SUBSALICYLATE 524 MG/30 ML PO PRN (16:13)
[2022-11-11] MEDS ORDERED: ALBUTEROL SO4 HFA INHALER IH PRN (16:17)
[2022-11-11] MEDS: chlordiazePOXIDE HCL 25 MG CAPSULE PO SCH ×2 (17:45→22:26)
[2022-11-11] MEDS: PRENATAL VITAMINS W/ FOLIC ACID TABLET (FP) PO SCH (17:45)
[2022-11-11] MEDS: MELATONIN 5 MG TABLETS PO SCH (22:27)
[2022-11-11] MEDS: THIAMINE HCL 100 MG TABLET (FP) PO SCH (22:27)
[2022-11-12] MEDS: chlordiazePOXIDE HCL 25 MG CAPSULE PO SCH ×4 (05:45→22:12)
[2022-11-12] MEDS: PRENATAL VITAMINS W/ FOLIC ACID TABLET (FP) PO SCH (10:16)
[2022-11-12] MEDS: amLODIPine BESYLATE 10 MG TABLET (FP) PO SCH (10:16)
[2022-11-12] MEDS: ESCITALOPRAM OXALATE 10 MG TABLET PO SCH (10:17)
[2022-11-12 11:49] LABS: HEMATOCRIT 39.7 % (32.4-45.2); HEMOGLOBIN 12.7 GM/dL (10.7-15.3); MCH 27.7 pg (25.7-33.7); MCHC 31.9 g/dl (32.0-36.0); MEAN CELL VOLUME 86.9 fl (80-96); MEAN PLT VOLUME 9.1 fl (7.5-11.1); PLATELET COUNT 284 10^3/uL (134-434); RBC 4.57 M/mm3 (3.60-5.2); RDW 16.6 % (11.6-15.6); WHITE BLOOD COUNT 6.5 K/mm3 (4.0-10.0)
[2022-11-12 11:54] LABS: CALCIUM 9.8 mg/dL (8.5-10.1)
[2022-11-12 11:58] LABS: CREATININE 0.8 mg/dL (0.55-1.3)
[2022-11-12 11:59] LABS: BILIRUBIN,TOTAL 1.5 mg/dL (0.2-1); TOT PROT 7.9 g/dl (6.4-8.2)
[2022-11-12] MEDS: METHOCARBAMOL 500 MG TABLET PO PRN (12:44)
[2022-11-12] MEDS: THIAMINE HCL 100 MG TABLET (FP) PO SCH (22:12)
[2022-11-12] MEDS: QUEtiapine FUMARATE 100 MG TABLET (FP) PO SCH (22:12)
[2022-11-12] MEDS: MELATONIN 5 MG TABLETS PO SCH (22:12)
[2022-11-13] MEDS: METHOCARBAMOL 500 MG TABLET PO PRN ×2 (02:40→18:15)
[2022-11-13] MEDS: chlordiazePOXIDE HCL 25 MG CAPSULE PO SCH ×4 (05:36→22:26)
[2022-11-13] MEDS: ESCITALOPRAM OXALATE 10 MG TABLET PO SCH (10:32)
[2022-11-13] MEDS: PRENATAL VITAMINS W/ FOLIC ACID TABLET (FP) PO SCH (10:32)
[2022-11-13] MEDS: amLODIPine BESYLATE 10 MG TABLET (FP) PO SCH (10:32)
[2022-11-13] MEDS: THIAMINE HCL 100 MG TABLET (FP) PO SCH (22:26)
[2022-11-13] MEDS: QUEtiapine FUMARATE 100 MG TABLET (FP) PO SCH (22:26)
[2022-11-13] MEDS: MELATONIN 5 MG TABLETS PO SCH (22:27)
[2022-11-14] MEDS: chlordiazePOXIDE HCL 10 MG CAPSULE PO SCH ×4 (06:20→22:19)
[2022-11-14] MEDS: ESCITALOPRAM OXALATE 10 MG TABLET PO SCH (09:59)
[2022-11-14] MEDS: amLODIPine BESYLATE 10 MG TABLET (FP) PO SCH (09:59)
[2022-11-14] MEDS: PRENATAL VITAMINS W/ FOLIC ACID TABLET (FP) PO SCH (10:00)
[2022-11-14] MEDS: THIAMINE HCL 100 MG TABLET (FP) PO SCH (22:19)
[2022-11-14] MEDS: MELATONIN 5 MG TABLETS PO SCH (22:19)
[2022-11-14] MEDS: QUEtiapine FUMARATE 100 MG TABLET (FP) PO SCH (22:19)
[2022-11-15] MEDS ORDERED: chlordiazePOXIDE HCL 10 MG CAPSULE PO SCH (05:00)
[2022-11-15] MEDS: amLODIPine BESYLATE 10 MG TABLET (FP) PO SCH (10:07)
[2022-11-15] MEDS: METHOCARBAMOL 500 MG TABLET PO PRN (10:07)
[2022-11-15] MEDS: PRENATAL VITAMINS W/ FOLIC ACID TABLET (FP) PO SCH (10:07)
[2022-11-15] MEDS: ESCITALOPRAM OXALATE 10 MG TABLET PO SCH (10:07)
[2022-11-15 13:25] VITALS: BP 142/88; PULSE 72; RESP 17; TEMP 98.2
[2022-11-16] MEDS ORDERED: chlordiazePOXIDE HCL 10 MG CAPSULE PO ONE (05:00)
== END 2022-11-15 15:30 | disposition home or self-care (01) | DRG 775 ==
LOC: YASAS 13:46 → Y6N 17:03
PROVIDERS: ADMIT Allergy & Immunology; ATTEND Surgery
PROC: HZ2ZZZZ Detoxification Services for Substance Abuse Treatment (ICD-10-PCS; principal; 2022-11-11)
DX: F10.230 Alcohol dependence with withdrawal, uncomplicated (principal); F12.20 Cannabis dependence, uncomplicated; F43.10 Post-traumatic stress disorder, unspecified; F32.9 Major depressive disorder, single episode, unspecified; F60.3 Borderline personality disorder; E78.5 Hyperlipidemia, unspecified; I10 Essential (primary) hypertension; J45.909 Unspecified asthma, uncomplicated; D56.3 Thalassemia minor; H54.8 Legal blindness, as defined in USA; Z62.810 Personal history of physical and sexual abuse in childhood; Z91.410 Personal history of adult physical and sexual abuse; Z91.51 Personal history of suicidal behavior; Z28.310 Unvaccinated for COVID-19; Z28.9 Immunization not carried out for unspecified reason
CPT/HCPCS: 36415; 80053; 81025; 85027; 86780; 93005; 93010; C9803-CS; U0003; U0005

== ENCOUNTER 2024-05-03 11:55 | Inpatient (IN) | payer OTHER ==
[2024-05-03 13:31] VITALS: BMI 27.3
[2024-05-03] MEDS ORDERED: guaiFENesin 600 MG TABLET.ER (FP) PO PRN (13:49)
[2024-05-03] MEDS ORDERED: DICYCLOMINE HCL 10 MG CAPSULE PO PRN (13:49)
[2024-05-03] MEDS ORDERED: NICOTINE POLACRILEX 2 MG GUM BUC PRN (13:49)
[2024-05-03] MEDS ORDERED: ACETAMINOPHEN 325 MG TABLET (FP) PO PRN (13:49)
[2024-05-03] MEDS ORDERED: POLYETHYLENE GLYCOL (HEALTHYLAX) 3350 17 GM PACKET PO PRN (13:49)
[2024-05-03] MEDS ORDERED: BISMUTH SUBSALICYLATE 524 MG/30 ML PO PRN (13:49)
[2024-05-03] MEDS ORDERED: MAG HYDROX/AL HYDROX/SIMETH 30 ML UNIT-DOSE CUP PO PRN (13:49)
[2024-05-03] MEDS ORDERED: BENZONATATE 200 MG CAPSULE PO PRN (13:49)
[2024-05-03] MEDS ORDERED: LOPERAMIDE HCL 2 MG CAPSULE PO PRN (13:49)
[2024-05-03] MEDS ORDERED: NICOTINE POLACRILEX 2 MG LOZENGE BC PRN (13:49)
[2024-05-03] MEDS ORDERED: IBUPROFEN 400 MG TABLET (FP) PO PRN (13:49)
[2024-05-03] MEDS ORDERED: BENZOCAINE/MENTHOL (CHLORASEPTIC ) LOZENGE MM PRN (13:49)
[2024-05-03] MEDS: diazePAM 5 MG TABLET PO ONE (16:07)
[2024-05-03] MEDS: diazePAM 5 MG TABLET PO SCH (16:48)
[2024-05-03] MEDS: diazePAM 5 MG TABLET PO PRN (20:09)
[2024-05-03] MEDS: METHOCARBAMOL 500 MG TABLET PO PRN (22:37)
[2024-05-03] MEDS: MELATONIN 5 MG TABLETS PO SCH (22:37)
[2024-05-03] MEDS: THIAMINE 100 MG TABLET PO SCH (22:37)
[2024-05-04] MEDS: IBUPROFEN 600 MG TABLET (FP) PO PRN (05:49)
[2024-05-04] MEDS: PRENATAL VITAMINS W/ FOLIC ACID TABLET (FP) PO SCH (10:23)
[2024-05-04] MEDS: amLODIPine BESYLATE 10 MG TABLET (FP) PO SCH (10:23)
[2024-05-04] MEDS: ESCITALOPRAM OXALATE 10 MG TABLET PO SCH (11:57)
[2024-05-04 11:59] LABS: POTASSIUM 4.1 mmol/L (3.5-5.1)
[2024-05-04 12:05] LABS: ALBUMIN 3.5 g/dl (3.4-5.0); CALCIUM 9.4 mg/dL (8.5-10.1)
[2024-05-04 12:06] LABS: BLOOD UREA NITROGEN 11.6 mg/dL (7-18)
[2024-05-04 12:08] LABS: CREATININE 0.9 mg/dL (0.55-1.3)
[2024-05-04 12:10] LABS: TOT PROT 6.7 g/dl (6.4-8.2)
[2024-05-04 12:25] LABS: HEMATOCRIT 33.2 % (32.4-45.2); HEMOGLOBIN 10.3 GM/dL (10.7-15.3); MCH 22.6 pg (25.7-33.7); MCHC 31.1 g/dl (32.0-36.0); MEAN CELL VOLUME 72.8 fl (80-96); MEAN PLT VOLUME 9.1 fl (7.5-11.1); PLATELET COUNT 380 10^3/uL (134-434); RBC 4.56 M/mm3 (3.60-5.2); RDW 27.8 % (11.6-15.6); WHITE BLOOD COUNT 6.2 K/mm3 (4.0-10.0)
[2024-05-04] MEDS: QUEtiapine FUMARATE 100 MG TABLET (FP) PO SCH (22:10)
[2024-05-05] MEDS: diazePAM 5 MG TABLET PO SCH (05:58)
[2024-05-05] MEDS: MAGNESIUM HYDROX 2400MG/30ML ORAL SUSPENSION 30 ML CUP PO PRN (12:30)
[2024-05-05] MEDS: ACAMPROSATE CALCIUM 333 MG TABLET.DR PO SCH (22:38)
[2024-05-06] MEDS: diazePAM 5 MG TABLET PO SCH (06:15)
[2024-05-06] MEDS: ONDANSETRON *ODT* 4 MG TABLET SL PRN (16:45)
[2024-05-06] MEDS: TRIMETHOBENZAMIDE HCL 200MG/2ML INJ IM ONE (18:19)
[2024-05-06 21:18] VITALS: RESP 16
[2024-05-07 10:45] VITALS: BP 133/82; PULSE 111; TEMP 98.9
== END 2024-05-07 12:26 | disposition home or self-care (01) | DRG 775 ==
LOC: YASAS 11:55 → Y6N 14:04
PROVIDERS: ADMIT Allergy & Immunology; ATTEND Surgery
PROC: HZ2ZZZZ Detoxification Services for Substance Abuse Treatment (ICD-10-PCS; principal; 2024-05-03)
DX: F10.230 Alcohol dependence with withdrawal, uncomplicated (principal); F12.20 Cannabis dependence, uncomplicated; F17.210 Nicotine dependence, cigarettes, uncomplicated; F10.282 Alcohol dependence with alcohol-induced sleep disorder; F10.280 Alcohol dependence with alcohol-induced anxiety disorder; F10.24 Alcohol dependence with alcohol-induced mood disorder; F25.1 Schizoaffective disorder, depressive type; F31.9 Bipolar disorder, unspecified; F60.3 Borderline personality disorder; E78.5 Hyperlipidemia, unspecified; I10 Essential (primary) hypertension; R11.2 Nausea with vomiting, unspecified; Z62.810 Personal history of physical and sexual abuse in childhood; Z91.410 Personal history of adult physical and sexual abuse; Z63.8 Other specified problems related to primary support group; Z63.0 Problems in relationship with spouse or partner
CPT/HCPCS: 36415; 80053; 85027; 86780; Q0162

== ENCOUNTER 2024-05-06 23:27 | Emergency (ER) | payer OTHER ==
[2024-05-06 23:34] VITALS: TEMP 98.1; BMI 27.4
[2024-05-07] MEDS ORDERED: FAMOTIDINE 20 MG/50 ML IVPB 20 MG/50 ML MG IVPB ONE (00:37)
[2024-05-07] MEDS: FAMOTIDINE 20 MG/50 ML IVPB 20 MG/50 ML MG IVPB ONE ×2 (00:58→02:57)
[2024-05-07] MEDS: SODIUM CHLORIDE 0.9% 500 ML INFUS.BAG IV ONE ×2 (01:32→02:36)
[2024-05-07 01:50] LABS: BASO % 0.3 % (0-2.0); HEMOGLOBIN 13.5 GM/dL (10.7-15.3); MCHC 32.1 g/dl (32.0-36.0); MEAN CELL VOLUME 71.6 fl (80-96); MEAN PLT VOLUME 8.5 fl (7.5-11.1); MONO % 2.7 % (3.8-10.2); PLATELET COUNT 515 10^3/uL (134-434); RBC 5.87 M/mm3 (3.60-5.2); RDW 28.9 % (11.6-15.6)
[2024-05-07 02:23] LABS: POTASSIUM 4.3 mmol/L (3.5-5.1)
[2024-05-07 02:28] LABS: BLOOD UREA NITROGEN 7.9 mg/dL (7-18); MAGNESIUM 2.2 mg/dL (1.8-2.4)
[2024-05-07 02:31] LABS: CREATININE 1.1 mg/dL (0.55-1.3)
[2024-05-07 02:38] LABS: ALBUMIN 4.9 g/dl (3.4-5.0); CALCIUM 11.3 mg/dL (8.5-10.1); TOT PROT 9.9 g/dl (6.4-8.2)
[2024-05-07 03:05] LABS: ANISOCYTOSIS 2+; MACROCYTOSIS 0; OVALOCYTE 1+; ROULEAU 1+; TARGET CELLS 1+
[2024-05-07] MEDS: CEFTRIAXONE 1 GM in DEXTROSE 5%-WATER - 50 ML IVPB ONE (05:05)
[2024-05-07 05:49] VITALS: RESP 18
[2024-05-07] MEDS ORDERED: ONDANSETRON 4 MG/2 ML VIAL ONE (06:07)
[2024-05-07] MEDS: ONDANSETRON 4 MG/2 ML VIAL IVPUSH ONE (06:33)
[2024-05-07 09:04] VITALS: BP 135/85; PULSE 106
== END 2024-05-07 09:48 | disposition home or self-care (01) ==
LOC: JER 23:27
PROC: 3E033GC Introduction of Other Therapeutic Substance into Peripheral Vein, Percutaneous Approach (ICD-10-PCS; principal; 2024-05-07)
PROC: 3E033GC Introduction of Other Therapeutic Substance into Peripheral Vein, Percutaneous Approach (ICD-10-PCS; 2024-05-07)
PROC: 3E033GC Introduction of Other Therapeutic Substance into Peripheral Vein, Percutaneous Approach (ICD-10-PCS; 2024-05-07)
PROC: 3E033GC Introduction of Other Therapeutic Substance into Peripheral Vein, Percutaneous Approach (ICD-10-PCS; 2024-05-07)
DX: R11.10 Vomiting, unspecified (principal); R51.9 Headache, unspecified; R10.9 Unspecified abdominal pain; R68.83 Chills (without fever)
CPT/HCPCS: 36415; 74177-TC; 80053; 83690; 83735; 84703; 85025; 99285-25

== ENCOUNTER 2024-09-23 10:49 | Inpatient (IN) | payer OTHER ==
[2024-09-23 11:18] VITALS: BMI 26.6
[2024-09-23] MEDS ORDERED: POLYETHYLENE GLYCOL (HEALTHYLAX) 3350 17 GM PACKET PO PRN (12:06)
[2024-09-23] MEDS ORDERED: guaiFENesin 600 MG TABLET.ER (FP) PO PRN (12:06)
[2024-09-23] MEDS ORDERED: BENZONATATE 200 MG CAPSULE PO PRN (12:06)
[2024-09-23] MEDS ORDERED: BISMUTH SUBSALICYLATE 262 MG/15 ML BTL PO PRN (12:06)
[2024-09-23] MEDS ORDERED: LOPERAMIDE HCL 2 MG CAPSULE PO PRN (12:06)
[2024-09-23] MEDS ORDERED: ONDANSETRON *ODT* 4 MG TABLET SL PRN (12:06)
[2024-09-23] MEDS ORDERED: IBUPROFEN 400 MG TABLET (FP) PO PRN (12:06)
[2024-09-23] MEDS ORDERED: BENZOCAINE/MENTHOL (CHLORASEPTIC ) LOZENGE MM PRN (12:06)
[2024-09-23] MEDS ORDERED: NALOXONE (NARCAN) HCL 4 MG/0.1 ML SPRAY NS PRN (12:06)
[2024-09-23] MEDS ORDERED: NALTREXONE HCL 50 MG TABLET PO SCH (12:15)
[2024-09-23] MEDS ORDERED: NICOTINE 7 MG/24 HOURS TOPICAL PATCH TD ONE (14:04)
[2024-09-23] MEDS ORDERED: PRENATAL VITAMINS W/ FOLIC ACID TABLET (FP) PO ONE (14:04)
[2024-09-23] MEDS: PRENATAL VITAMINS W/ FOLIC ACID TABLET (FP) PO SCH (14:06)
[2024-09-23] MEDS: NICOTINE 7 MG/24 HOURS TOPICAL PATCH TD SCH (14:06)
[2024-09-23] MEDS: NALTREXONE HCL 50 MG TABLET PO SCH (15:22)
[2024-09-23] MEDS: diazePAM 5 MG TABLET PO SCH (17:29)
[2024-09-23] MEDS: MELATONIN 5 MG TABLETS PO SCH (22:07)
[2024-09-23] MEDS: IBUPROFEN 600 MG TABLET (FP) PO PRN (22:08)
[2024-09-23] MEDS: METHOCARBAMOL 500 MG TABLET PO PRN (22:08)
[2024-09-23] MEDS: THIAMINE 100 MG TABLET PO SCH (22:08)
[2024-09-24] MEDS: hydrOXYzine PAMOATE 25 MG CAPSULE (FP) PO PRN (10:39)
[2024-09-24] MEDS: amLODIPine BESYLATE 10 MG TABLET (FP) PO SCH (10:39)
[2024-09-24 11:56] LABS: HEMATOCRIT 38.9 % (32.4-45.2); HEMOGLOBIN 12.3 GM/dL (10.7-15.3); MCH 27.1 pg (25.7-33.7); MCHC 31.6 g/dl (32.0-36.0); MEAN PLT VOLUME 9.7 fl (7.5-11.1); PLATELET COUNT 277 10^3/uL (134-434); RBC 4.53 M/mm3 (3.60-5.2); RDW 17.7 % (11.6-15.6)
[2024-09-24] MEDS: QUEtiapine FUMARATE 50 MG TABLET PO ONE (12:10)
[2024-09-24] MEDS: ESCITALOPRAM OXALATE 10 MG TABLET PO SCH (12:10)
[2024-09-24 12:23] LABS: POTASSIUM 4.1 mmol/L (3.5-5.1)
[2024-09-24 12:27] LABS: ALBUMIN 3.6 g/dl (3.4-5.0); CALCIUM 9.5 mg/dL (8.5-10.1)
[2024-09-24 12:28] LABS: BLOOD UREA NITROGEN 7.5 mg/dL (7-18)
[2024-09-24 12:32] LABS: BILIRUBIN,TOTAL 0.6 mg/dL (0.2-1)
[2024-09-24] MEDS: MAG HYDROX/AL HYDROX/SIMETH 30 ML UNIT-DOSE CUP PO PRN (15:38)
[2024-09-24] MEDS: DICYCLOMINE HCL 10 MG CAPSULE PO PRN (15:38)
[2024-09-24 18:23] LABS: HIV INTERPRETATION NEGATIVE (NEGATIVE)
[2024-09-24] MEDS: QUEtiapine FUMARATE 50 MG TABLET PO SCH (22:17)
[2024-09-24] MEDS: ACETAMINOPHEN 325 MG TABLET (FP) PO PRN (22:18)
[2024-09-25] MEDS: diazePAM 5 MG TABLET PO SCH (05:46)
[2024-09-25] MEDS: diazePAM 5 MG TABLET PO PRN (10:13)
[2024-09-25] MEDS: SODIUM PHOSPHATE/NA BIPHOS 133 ML ENEMA RC ONE (12:34)
[2024-09-26] MEDS: diazePAM 5 MG TABLET PO SCH (05:41)
[2024-09-26] MEDS: ALBUTEROL SO4 HFA INHALER IH PRN (05:41)
[2024-09-26] MEDS: MAGNESIUM HYDROX 2400MG/30ML ORAL SUSPENSION 30 ML CUP PO PRN (09:27)
[2024-09-26] MEDS: NALTREXONE HCL 50 MG TABLET PO SCH (13:30)
[2024-09-26 20:56] VITALS: RESP 16
[2024-09-27] MEDS: diazePAM 5 MG TABLET PO ONE (05:25)
[2024-09-27] MEDS ORDERED: NALTREXONE MICROSPHERES (VIVITROL) 380 MG DISP.SYRIN IM ONE (07:00)
[2024-09-27 09:20] VITALS: BP 140/80; PULSE 87; TEMP 98.2
[2024-09-27] MEDS: NALTREXONE MICROSPHERES (VIVITROL) 380 MG DISP.SYRIN IM ONE (10:18)
[2024-09-27] MEDS: NALOXONE (NYS OPIOID OVERDOSE PROGRAM) 4 MG/0.1 ML SPRAY NS SCH (11:03)
== END 2024-09-27 12:27 | disposition home or self-care (01) | DRG 775 ==
LOC: YASAS 10:49 → Y3N 14:18
PROVIDERS: ADMIT Allergy & Immunology; ATTEND Surgery
PROC: HZ2ZZZZ Detoxification Services for Substance Abuse Treatment (ICD-10-PCS; principal; 2024-09-23)
DX: F10.230 Alcohol dependence with withdrawal, uncomplicated (principal); F12.20 Cannabis dependence, uncomplicated; F17.210 Nicotine dependence, cigarettes, uncomplicated; F19.24 Other psychoactive substance dependence with psychoactive substance-induced mood disorder; F31.9 Bipolar disorder, unspecified; F60.9 Personality disorder, unspecified; F43.10 Post-traumatic stress disorder, unspecified; I10 Essential (primary) hypertension; J45.909 Unspecified asthma, uncomplicated
CPT/HCPCS: 36415; 80053; 80305; 80307; 81025; 85027; 86780; 87389; 87491; 87591; 93005; 93010; J2315